=== PATIENT | male | born 1985 | race Caucasian/White ===

== ENCOUNTER 2016-04-15 09:47 | Emergency (ER) | payer OTHER ==
[2016-04-15 10:04] VITALS: BP 109/64
--- NOTE | 2016-04-15 10:50 | UC ---
Ear Complaint HPI - HPI Summary HPI Summary: Has had nasal congestion, cough, and ST for about a week. ST was better and thought he was over a cold, then woke up with bloody drainage from R ear and unable to hear. Children dx with strep yesterday. Denies fever or current pain. - History of Current Complaint Chief Complaint: UCRespiratory Stated Complaint: EAR/THROAT COMPLAINTS Time Seen by Provider: 04/15/16 10:36 Hx Obtained From: Patient Onset/Duration: Sudden Onset Severity Initially: Moderate Severity Currently: Mild Aggravating Factors: Nothing Alleviating Factors: Nothing Associated Signs/Symptoms: Positive: Discharge, URI Symptoms - Allergies/Home Medications Allergies/Adverse Reactions: Allergies Allergy/AdvReac Type Severity Reaction Status Date / Time No Known Allergies Allergy Verified 04/15/16 10:04 Home Medications: Home Medications Dexamethasone TAB* [Decadron TAB*] 0.5 mg PO DAILY 04/15/16 [History Confirmed 04/15/16] PMH/Surg Hx/FS Hx/Imm Hx Previously Healthy: Yes Endocrine History Of: Denies: Diabetes, Thyroid Disease Cardiovascular History Of: Denies: Cardiac Disorders, Hypertension Respiratory History Of: Denies: COPD, Asthma GI/ History Of: Denies: Ulcer - Surgical History Surgical History: None - Family History Known Family History: Negative: Blood Disorder - Social History Lives: With Family Alcohol Use: Occasionally Substance Use Type: None Smoking Status (MU): Unknown if Ever Smoked Type: Smokeless Tobacco Review of Systems Constitutional: Negative Skin: Negative Eyes: Negative ENT: Ear Ache Respiratory: Negative Cardiovascular: Negative Gastrointestinal: Negative Genitourinary: Negative Motor: Negative Neurovascular: Negative Musculoskeletal: Negative Neurological: Negative Psychological: Negative All Other Systems Reviewed And Are Negative: Yes Physical Exam Triage Information Reviewed: Yes Appearance: Well-Appearing, No Pain Distress, Well-Nourished Vital Signs: Initial Vital Signs Temp 97.9 F 04/15/16 10:01 Pulse 88 04/15/16 10:01 Resp 18 04/15/16 10:01 BP 109/64 04/15/16 10:01 Pulse Ox 96 04/15/16 10:01 Vital Signs Reviewed: Yes Eye Exam: Normal Eyes: Positive: Conjunctiva Clear ENT: Positive: Pharynx normal, Nasal congestion, TMs normal - L TM normal, Other : - Unable to see R TM due to purulent drainage, no tragal tenderness. Negative : Tonsillar exudate Dental Exam: Normal Neck exam: Normal Neck: Positive: Supple, Nontender, No Lymphadenopathy Respiratory Exam: Normal Respiratory: Positive: Chest non-tender, Lungs clear, Normal breath sounds, No respiratory distress, No accessory muscle use Cardiovascular Exam: Normal Cardiovascular: Positive: RRR, No Murmur Musculoskeletal Exam: Normal Neurological Exam: Normal Psychological Exam: Normal Skin Exam: Normal Ear Complaint Course/Dx - Differential Dx/Diagnosis Provider Diagnoses: R AOM with rupture of TM Discharge - Discharge Plan Condition: Stable Disposition: HOME Prescriptions: Amoxicillin/Clavulanate TAB* [Augmentin TAB 875*] 875 mg PO BID #14 tab Ciproflox/Dexameth OTIC.SUSP* [Ciprodex OTIC.SUSP*] 4 drop RIGHT EAR BID #1 btl Patient Education Materials: Otitis Media (ED), Ruptured Eardrum (ED) Referrals: Panda Chávez MD [Medical Doctor] - 2 Weeks Additional Instructions: Please see Dr. Chávez or your old PCP in about 2 weeks to make sure the ear is healing well. Until your follow-up, don't swim under water or try to get any water in your ear. Showering is fine, but keep your ear canal out of direct spray. Come back here if you have high fever, increasing pain, or suspect any other problems.
== END 2016-04-15 10:52 | disposition home or self-care (01) ==
LOC: UCEAST 09:47
DX: H66.91 Otitis media, unspecified, right ear (principal); H72.91 Unspecified perforation of tympanic membrane, right ear; Z72.0 Tobacco use
CPT/HCPCS: 99202; G0463

== ENCOUNTER 2017-11-02 12:50 | Emergency (ER) | payer SELFPAY ==
--- NOTE | 2017-11-02 14:49 | ED ---
Abdominal Pain/Male - HPI Summary HPI Summary: This patient is a 32 year old M presenting to [facility] accompanied by his mother with a chief complaint of cramping abd pain since 10/31/17 AM. He endorses N/V/D (first N/V, then abd pain, then diarrhea), non-productive cough, SOB, dyspnea, LLE edema (intermittent over past 2 years, recently worse), and fever (resolved) . PT denies CP. PMHx Addisons disease, R hydrocortisone. FHx Addisons disease brother and sister; his brother of similar sx 2.5 years ago; he became dehydrated then suffered cardiac arrest secondary to low K+ levels. 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 He denies PMHx DVT, and PE. Pt has several prior medical admissions. - History of Current Complaint Chief Complaint: EDAbdPain Stated Complaint: FEVER,N/D,DIFF BREATHING Time Seen by Provider: 11/02/17 14:42 Hx Obtained From: Patient Onset/Duration: Gradual Onset, Lasting Days, Still Present Timing: Constant Severity Initially: Moderate Severity Currently: Moderate Pain Intensity: 6 Pain Scale Used: 0-10 Numeric Location: Diffuse Radiates: No Character: Cramping Aggravating Factor(s): Nothing Alleviating Factor(s): Nothing Associated Signs And Symptoms: Positive: Fever - resolved, Cough - non- productive, Nausea, Vomiting, Diarrhea. 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 Denies: Hx Diabetes, Hx Thyroid Disease Cardiovascular History: Denies: Hx Hypertension Respiratory History: Denies: Hx Asthma, Hx Chronic Obstructive Pulmonary Disease (COPD) GI History: Denies: Hx Ulcer History: Denies: Hx Dialysis Sensory History: Denies: Hx Legally Blind, Hx Deafness Opthamlomology History: Denies: Hx Legally Blind EENT History: Denies: Hx Deafness Neurological History: Denies: Hx Dementia Psychiatric History: Denies: Hx Schizophrenia Infectious Disease History: No Infectious Disease History: Denies: Hx Hepatitis, Hx Human Immunodeficiency Virus (HIV), Traveled Outside the [place] in Last 30 Days - Family History Known Family History: Positive: Other - Saint Joseph's Disease (brother) Negative: Blood Disorder - Social History Occupation: Employed Full-time Lives: With Family Alcohol Use: Occasionally Hx Substance Use: No Substance Use Type: Reports: None Smoking Status (MU): Unknown if Ever Smoked Type: Smokeless Tobacco Review of Systems Positive: Fever - resolved Negative: Chest Pain Positive: Shortness Of Breath - secondary to dyspnea, Cough - non-productive Positive: Abdominal Pain, Vomiting, Diarrhea, Nausea Positive: no symptoms reported Positive: Edema - LLE All Other Systems Reviewed And Are Negative: Yes Physical Exam - Summary Physical Exam Summary: GENERAL: Patient is a well-developed and nourished M who is lying comfortable in the stretcher. Patient is not in any acute respiratory distress. HEAD AND FACE: Normocephalic EYES: PERRLA, EOMI x 2. EARS: Hearing grossly intact. MOUTH: Oropharynx within normal limits. NECK: Supple, trachea is midline, no adenopathy, no JVD, no carotid bruit. CHEST: Symmetric, no tenderness at palpation LUNGS: Inspiratory and expiratory wheezes on left side posteriorly. CVS: Regular rate and rhythm, S1 and S2 present, no murmurs or gallops appreciated. ABDOMEN: Soft, diffusely TTP. Bowel sounds are normal. No abdominal abnormal pulsations. EXTREMITIES: Full ROM in all major joints, no cyanosis or clubbing. 2+ pitting edema of LLE (chronic) NEURO: Alert and oriented x 3. No acute neurological deficits. Speech is normal and follows commands. SKIN: Dry and warm Triage Information Reviewed: Yes Vital Signs On Initial Exam: Initial Vitals Temp Pulse Resp BP Pulse Ox 97.9 F 104 18 109/64 94 11/02/17 12:58 11/02/17 12:58 11/02/17 12:58 11/02/17 12:58 11/02/17 12:58 Vital Signs Reviewed: Yes Diagnostics - Vital Signs Vital Signs Temp Pulse Resp BP Pulse Ox 11/02/17 12:58 97.9 F 104 18 109/64 94 - Laboratory Result Diagrams: 11/02/17 14:45 11/02/17 14:45 Lab Statement: Any lab studies that have been ordered have been reviewed, and results considered in the medical decision making process. - CT CTA C/A/P CT Interpretation: Positive (See Comments) CT Interpretation Completed By: Radiologist - No definite evidence of pulmonary embolus is noted. No evidence of aortic dissection is noted. Mild mediastinal and right hilar adenopathy is noted. Etiology is unclear. There is fluid throughout the colon with no abnormally dilated loops of small bowel. Findings are worrisome for gastroenteritis. Dr. Berumen has reviewed this report. - Ultrasound No standard instances Ultrasound Interpretation: No Acute Changes Ultrasound Interpretation Completed By: Radiologist - Normal bilateral lower extremity duplex venous ultrasound. Dr. Berumen has reviewed this report. - EKG 1438 Cardiac Rate: NL - 78 EKG Rhythm: Sinus Rhythm ST Segment: Normal EKG Interpretation: Slight intraventricular conduction delay. Abdominal Pain Fem Course/Dx - Course Course Of Treatment: A 32-year-old M presents to the ED with a CC of cramping abd pain for 2 days. (+) N/V/D (1st N/V, then abd pain onset, followed by diarrhea), fever (resolved), LLE edema, non-productive cough, and SOB secondary to dyspnea. (-) CP. 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 A CTA C/A/P reveals no definite evidence of pulmonary embolus is noted. No evidence of aortic dissection is noted. Mild mediastinal and right hilar adenopathy is noted. Etiology is unclear. There is fluid throughout the colon with no abnormally dilated loops of small bowel. An bilateral VD US was (-). Findings are worrisome for gastroenteritis. An EKG reveals NSR at 78 BPM and a slight intraventricular conduction delay. In the ED course, pt was given morphine, nl saline, and magnesium sulfate. Pt was offered admission for IV abx but pt preferred discharge. I discussed results with patient and he agrees with this plan. He is hemodynamically stable upon discharge. Strict return precautions given and he will otherwise follow up with his PCP. - Diagnoses Provider Diagnoses: Gastroenteritis Discharge - Sign-Out/Discharge Documenting (check all that apply): Patient Departure - discharge - Discharge Plan Condition: Stable Disposition: HOME Prescriptions: Ondansetron ODT TAB* [Zofran 4 MG Odt TAB*] 4 mg PO Q6H PRN #12 tab.odt PRN Reason: Vomiting Patient Education Materials: Gastroenteritis (ED) Forms: *Work Release Referrals: Panda Chávez MD [Primary Care Provider] - Additional Instructions: Please return to the emergency department for any new or worsening symptoms. Follow up with your primary care provider in 1-3 days. - Billing Disposition and Condition Condition: STABLE Disposition: Home - Attestation Statements Document Initiated by Inessa: Yes Documenting Scribe: Zachary More Provider For Whom Inessa is Documenting (Include Credential): Dr. Ronn Berumen MD Scribe Attestation: Zachary Price scribed for Dr. Ronn Berumen MD on 11/05/17 at 0741. Scribe Documentation Reviewed: Yes Provider Attestation: The documentation as recorded by the Zachary limon accurately reflects the service I personally performed and the decisions made by me, Dr. Ronn Berumen MD
[2017-11-02 15:00] LABS: ABS Basophils 0 10^3/ul (0-0.2); ABS Eosinophils 0.4 10^3/ul (0-0.6); ABS Lymphocytes 1.3 10^3/ul (1.0-4.8); ABS Monocytes 0.6 10^3/ul (0-0.8); ABS Neutrophils 4.9 10^3/ul (1.5-7.7); ABS Nucleated RBC 0 10^3/ul; Eosinophil % 5.8 % (0-6); Hematocrit 47 % (42-52); Hemoglobin 16.2 g/dl (14.0-18.0); Lymphocyte % 18.3 % (25-47); Mean Corpuscular HGB Conc 35 g/dl (31-36); Mean Corpuscular Hemoglobin 29 pg (27-31); Mean Corpuscular Volume 84 fL (80-94); Mean Platelet Volume 7.9 um3 (7.4-10.4); Nucleated Red Blood Cells % 0; Platelet Count 213 10^3/ul (150-450); Red Blood Count 5.59 10^6/ul (4.00-5.40); Red Cell Distribution Width 14 % (10.5-15); White Blood Count 7.2 10^3/ul (3.5-10.8)
[2017-11-02] MEDS ORDERED: NS 0.9% 1000 ML* 1,000 ML IV ONE ×2 (15:18→18:41)
[2017-11-02] MEDS ORDERED: Metoclopramide IV* 5 MG/ML 2 ML VIAL IV ONE (15:19)
[2017-11-02] MEDS ORDERED: Magnesium Sulfate 2 GM IV* 2 GM/50 ML BAG IVPB ONE (15:19)
[2017-11-02] MEDS ORDERED: Iohexol 350* (CONTRAST) 500 ML MDV IV ONE (17:00)
--- NOTE | 2017-11-02 17:39 | RAD ---
Indication: Elevated d-dimer. Shortness of breath. Abdominal pain. Contrast: Administered 94.0 ml of OMNIPAQUE 350 mg/ml CTA of the chest performed after IV contrast administration. CT of the abdomen and pelvis was performed after IV contrast administration. Coronal and sagittal reconstructed images were obtained. No oral contrast was given. Pulmonary arterial tree is well opacified. There are no filling defects present to suggest pulmonary embolus. The aorta demonstrates no evidence of aneurysmal dilatation or aortic dissection. The trachea and major bronchi appear patent. The lung soni demonstrate no focal nodules. There are small pleural effusion on the right. No alveolar consolidation is noted. No nodules are noted. There is small prevascular space lymph nodes measuring 6 mm. Subcarinal lymph nodes measure up to 11 mm, right hilar adenopathy measuring up to [address] of the abdomen and pelvis demonstrates liver to be normal in size. No focal lesions or intrahepatic duct dilatation is noted. The gallbladder demonstrates no calcified gallstones. No pericholecystic fluid or wall thickening is noted. The spleen is normal in size. Pancreas demonstrates no mass or pancreatic duct dilatation. Common duct is not dilated. No adrenal masses are noted. The kidneys demonstrate no hydronephrosis. No retroperitoneal lymphadenopathy is noted. CT of the pelvis demonstrates fluid throughout the colon and small bowel suggestive of gastroenteritis. No hernias are noted. No free fluid is identified. Prostate and seminal vesicles are unremarkable. The urinary bladder is unremarkable. The bony structures are grossly unremarkable. IMPRESSION: No definite evidence of pulmonary embolus is noted. No evidence of aortic dissection is noted. Mild mediastinal and right hilar adenopathy is noted. Etiology is unclear. There is fluid throughout the colon with no abnormally dilated loops of small bowel. Findings are worrisome for gastroenteritis.
[2017-11-02 19:51] LABS: Urine Appearance Clear; Urine Blood Negative (Negative); Urine Color Yellow; Urine Ketones Trace (Negative); Urine Protein Negative (Negative); Urine Specific Gravity > 1.060 (1.010-1.030); Urine Urobilinogen Negative (Negative)
--- NOTE | 2017-11-02 20:14 | RAD ---
EXAM: US Duplex Bilateral Lower Extremity Veins CLINICAL HISTORY: 32 years old, male; Signs and symptoms; Edema, localized; Lower extremity, bilateral; Additional info: Leg swelling with elevated dimer TECHNIQUE: Real-time duplex ultrasound scan of the bilateral lower extremity veins integrating B-mode two-dimensional vascular structure, Doppler spectral analysis, color flow Doppler imaging and compression. COMPARISON: No relevant prior studies available. FINDINGS: Right deep veins: Normal. No DVT in the right common femoral, femoral, proximal deep femoral or popliteal veins. The veins demonstrate normal color flow, are normally compressible, with normal phasic flow and/or augmentation response. Right superficial veins: Normal. No thrombus in the visualized right great saphenous vein. Left deep veins: Normal. No DVT in the left common femoral, femoral, proximal deep femoral or popliteal veins. The veins demonstrate normal color flow, are normally compressible, with normal phasic flow and/or augmentation response. Left superficial veins: Normal. No thrombus in the visualized left great saphenous vein. Soft tissues: Normal. No popliteal cyst. IMPRESSION: Normal bilateral lower extremity duplex venous ultrasound.
[2017-11-02 20:38] VITALS: BP 103/61
== END 2017-11-02 20:35 | disposition home or self-care (01) ==
LOC: ED 12:50
DX: K52.9 Noninfective gastroenteritis and colitis, unspecified (principal); R50.9 Fever, unspecified; R05 Cough; R19.7 Diarrhea, unspecified; R06.02 Shortness of breath; R11.2 Nausea with vomiting, unspecified
CPT/HCPCS: 36415; 71275; 74177; 80053; 81003; 83735; 84484; 85025; 85379; 86141; 93005; 93970; 96365; 96375; 99284; J2765; J3475; Q9967

== ENCOUNTER 2018-03-24 07:46 | Emergency (ER) | payer SELFPAY ==
[2018-03-24] MEDS ORDERED: NS 0.9% 1000 ML** 1,000 ML IV.FLUID IV ONE (08:42)
[2018-03-24] MEDS ORDERED: Hydrocortisone TAB* 10 MG PO ONE (08:58)
[2018-03-24 09:02] LABS: ABS Basophils 0 10^3/ul (0-0.2); ABS Eosinophils 0.1 10^3/ul (0-0.6); ABS Lymphocytes 0.9 10^3/ul (1.0-4.8); ABS Monocytes 0.4 10^3/ul (0-0.8); ABS Neutrophils 7.7 10^3/ul (1.5-7.7); ABS Nucleated RBC 0 10^3/ul; Hematocrit 42 % (42-52); Hemoglobin 14.3 g/dl (14.0-18.0); Lymphocyte % 9.8 %; Mean Corpuscular HGB Conc 34 g/dl (31-36); Mean Corpuscular Hemoglobin 29 pg (27-31); Mean Corpuscular Volume 84 fL (80-94); Mean Platelet Volume 7.7 fL (7.4-10.4); Nucleated Red Blood Cells % 0; Platelet Count 169 10^3/ul (150-450); Red Blood Count 4.98 10^6/ul (4.00-5.40); Red Cell Distribution Width 13 % (10.5-15); White Blood Count 9.2 10^3/ul (3.5-10.8)
[2018-03-24 09:12] LABS: Activated Partial Thrombo Time 37.7 seconds (26.0-36.3); INR 1.1 (0.77-1.02)
[2018-03-24 09:20] LABS: Troponin I 0.01 ng/mL (<0.04)
[2018-03-24 09:21] LABS: Albumin 3.7 g/dL (3.2-5.2); Albumin/Globulin Ratio 1.1 (1-3); BUN/Creatinine Ratio 9.6 (8-20); Calcium 8.7 mg/dL (8.6-10.3); EGFR African American 99.5 (>60); EGFR Non-African American 82.2 (>60); Globulin 3.3 g/dL (2-4); Potassium 3.6 mmol/L (3.5-5.0); Total Bilirubin 0.6 mg/dL (0.2-1.0)
--- NOTE | 2018-03-24 09:25 | ED ---
Influenza-Like Illness - HPI Summary HPI Summary: A 33 y/o male presents to [facility] with a chief complaint of flu-like symptoms since the night of 03/23/18. The patient reports body aches, cough, nausea, vomiting, fever and chills. Per triage note, "Pt took tylenol 500 mg and nyquil last PM. States hx addisons disease. States no flu shot this year." At triage the patient rated his pain as a 7/10 in severity. He notes that his cough is yellow in color. He says that he last vomited at 19:00 03/23/18. He denies a Hx of asthma. He sees Dr. Panda Chávez. He denies erythema (eyes), sore throat, chest pain, shortness of breath, abdominal pain, dysuria, hematuria, myalgia, edema, rash and dizziness. He says that he has only been taking his medication at night for 20 years. Temperature of 101/6 noted at triage. - History of Current Complaint Chief Complaint: EDFluSymptoms Time Seen by Provider: 03/24/18 08:24 Hx Obtained From: Patient Onset/Duration: Sudden Onset, Lasting Hours, Still Present Severity: Severe Associated Signs & Symptoms: Fever, Cough, Vomiting - Allergy/Home Medications Allergies/Adverse Reactions: Allergies Allergy/AdvReac Type Severity Reaction Status Date / Time No Known Allergies Allergy Verified 04/15/16 10:04 PMH/Surg Hx/FS Hx/Imm Hx Endocrine/Hematology History: Reports: Other Endocrine/Hematological Disorders - Snyder's Disease Denies: Hx Diabetes, Hx Thyroid Disease Cardiovascular History: Denies: Hx Hypertension Respiratory History: Denies: Hx Asthma, Hx Chronic Obstructive Pulmonary Disease (COPD) GI History: Denies: Hx Ulcer History: Denies: Hx Dialysis Sensory History: Denies: Hx Legally Blind, Hx Deafness Opthamlomology History: Denies: Hx Legally Blind Neurological History: Denies: Hx Dementia Psychiatric History: Denies: Hx Schizophrenia - Surgical History Surgery Procedure, Year, and Place: HERNIA REPAIR AN INFANT - Immunization History Date of Tetanus Vaccine: > 10 years Infectious Disease History: No Infectious Disease History: Denies: Hx Hepatitis, Hx Human Immunodeficiency Virus (HIV), Traveled Outside the [place] in Last 30 Days - Family History Known Family History: Positive: Other - Snyder's Disease (brother) Negative: Blood Disorder - Social History Alcohol Use: Occasionally Hx Substance Use: No Substance Use Type: Reports: None Smoking Status (MU): Unknown if Ever Smoked Type: Smokeless Tobacco Review of Systems Positive: Fever, Chills Negative: Erythema Negative: Sore Throat Negative: Chest Pain Positive: Cough. Negative: Shortness Of Breath Positive: Vomiting, Nausea. Negative: Abdominal Pain, Diarrhea Negative: dysuria, hematuria Positive: Other - positive: body aches. Negative: Myalgia, Edema Negative: Rash Neurological: Negative - dizziness All Other Systems Reviewed And Are Negative: Yes Physical Exam - Summary Physical Exam Summary: Constitutional: Well-developed, Well-nourished, Alert. (-) Distressed Skin: Warm, Dry HENT: Normocephalic; Atraumatic Eyes: Conjunctiva normal Neck: Musculoskeletal ROM normal neck. (-) JVD, (-) Stridor, (-) Tracheal deviation Cardio: Rhythm regular, rate normal, Heart sounds normal; Intact distal pulses; The pedal pulses are 2+ and symmetric. Radial pulses are 2+ and symmetric. (-) Murmur Pulmonary/Chest wall: Effort normal. (-) Respiratory distress, (-) Wheezes, (-) Rales, (+) rhochi right lower lung field. Abd: Soft, (-) epigastric tenderness, (-) Distension, (-) Guarding, (-) Rebound Musculoskeletal: (-) Edema Lymph: (-) Cervical adenopathy Neuro: Alert, Oriented x3 Psych: Mood and affect Normal Triage Information Reviewed: Yes Vital Signs On Initial Exam: Initial Vitals Temp Pulse Resp BP Pulse Ox 101.6 F 120 20 114/75 94 03/24/18 07:50 03/24/18 07:50 03/24/18 07:50 03/24/18 07:50 03/24/18 07:50 Vital Signs Reviewed: Yes Diagnostics - Vital Signs Vital Signs Temp Pulse Resp BP Pulse Ox 03/24/18 07:50 101.6 F 120 20 114/75 94 - Laboratory Lab Results: Lab Results 03/24/18 03/24/18 Range/Units 08:53 08:53 WBC 9.2 (3.5-10.8) 10^3/ul RBC 4.98 (4.00-5.40) 10^6/ul Hgb 14.3 (14.0-18.0) g/dl Hct 42 (42-52) % MCV 84 (80-94) fL MCH 29 (27-31) pg MCHC 34 (31-36) g/dl RDW 13 (10.5-15) % Plt Count 169 (150-450) 10^3/ul MPV 7.7 (7.4-10.4) fL Neut % (Auto) 84.5 % Lymph % (Auto) 9.8 % Loving % (Auto) 4.6 % Eos % (Auto) 1.0 % Baso % (Auto) 0.1 % Absolute Neuts (auto) 7.7 (1.5-7.7) 10^3/ul Absolute Lymphs (auto) 0.9 L (1.0-4.8) 10^3/ul Absolute Monos (auto) 0.4 (0-0.8) 10^3/ul Absolute Eos (auto) 0.1 (0-0.6) 10^3/ul Absolute Basos (auto) 0 (0-0.2) 10^3/ul Absolute Nucleated RBC 0 10^3/ul Nucleated RBC % 0 INR (Anticoag Therapy) 1.10 H (0.77-1.02) APTT 37.7 H (26.0-36.3) seconds Result Diagrams: 03/24/18 08:53 03/24/18 08:53 Lab Statement: Any lab studies that have been ordered have been reviewed, and results considered in the medical decision making process. - Radiology CXR Radiology Interpretation Completed By: Radiologist Summary of Radiographic Findings: Pneumonia involving the LEFT lung with consolidation greatest at the lower lung zone. Negative for pleural effusion. ED physician has reviewed this imaging report. Flu Symptom Course/Dx - Course Course Of Treatment: A 33 y/o male presents to [facility] with a chief complaint of flu-like symptoms since the night of 03/23/18. The patient reports body aches, cough, nausea, vomiting, fever and chills. The physical exam revealed rhonchi in the right lower lung field. CXR impression: Pneumonia involving the LEFT lung with consolidation greatest at the lower lung zone. Negative for pleural effusion. In the ED course the patient was given 10mg hydrocortisone PO, 600mg ibuprofen PO, 500mg azithromycin IV. Lab results obtained and are WNL. The patient tested negative for influenza A and influenza B. His O2 Sat was normal. I increased his hydrocortisone for 2 weeks supply. He is to resume normal dose after 2 weeks and follow up with his PCP in 1-2 days. He will also be discharged with a prescription for Zithromax. Return precautions were given. He is agreeable with this plan. - Diagnoses Provider Diagnoses: Pneumonia, Addisons disease Discharge - Sign-Out/Discharge Documenting (check all that apply): Patient Departure - DC Patient Received Moderate/Deep Sedation with Procedure: No - Discharge Plan Condition: Stable Disposition: HOME Prescriptions: Azithromycin TAB* [Zithromax TAB (Z-DAVID) 250 mg #6 tabs] 250 mg PO DAILY #4 tab Azithromyxin DAVID (NF) [Z-David (Zithromax) 250 mg tabs #6] 2 tab PO .TODAY, THEN 1 DAILY #6 tab Hydrocortisone TAB* [Cortef TAB*] 10 mg PO BID #28 tab Hydrocortisone TAB* [Cortef TAB*] 10 mg PO BID #28 tab Forms: *Work Release Referrals: [facility] [Outside] (1-2 days) Additional Instructions: Increased hydrocortisone for 2 weeks supply, resume normal dose after 2 weeks Follow up with your PCP in 1-2 days. Return to the ED if you experience any new or worsening symptoms. - Billing Disposition and Condition Condition: STABLE Disposition: Home - Attestation Statements Document Initiated by Inessa: Yes Documenting Scribe: Samy Gray Provider For Whom Inessa is Documenting (Include Credential): Gerald Smith MD Scribe Attestation: ISamy, scribed for Gerald Smith MD on 03/27/18 at 0738. Scribe Documentation Reviewed: Yes Provider Attestation: The documentation as recorded by the Samy limon accurately reflects the service I personally performed and the decisions made by me, Gerald Smith MD Status of Scribe Document: Viewed
[2018-03-24] MEDS ORDERED: Azithromycin IV(*) 500 MG in NS 0.9% 250 ML* 250 ML IVPB ONE (10:51)
[2018-03-24] MEDS ORDERED: Ibuprofen TAB* 600 MG PO ONE (10:51)
[2018-03-24 12:06] LABS: Influenza A Molecular NEGATIVE (Negative); Influenza B Molecular NEGATIVE (Negative)
[2018-03-24] MEDS ORDERED: NS 0.9% 1000 ML** 1,000 ML IV ONE (13:19)
[2018-03-24 13:44] LABS: Urine Appearance Clear; Urine Bacteria 1+ (Absent); Urine Bilirubin Negative (Negative); Urine Blood 1+ (Negative); Urine Color Yellow; Urine Glucose Negative (Negative); Urine Ketones Negative (Negative); Urine Nitrite Negative (Negative); Urine Protein Negative (Negative); Urine Red Blood Cell 1+(3-5/hpf) (Absent); Urine Specific Gravity 1.018 (1.010-1.030); Urine Urobilinogen Negative (Negative); Urine White Blood Cell Trace(0-5/hpf) (Absent)
[2018-03-24 14:19] VITALS: BP 105/80
--- NOTE | 2018-03-25 08:28 | PN ---
Progress Note - Progress Note Date of Service: 03/24/18 Note: Pt. seen in ED Pt. seen in ED yesterday and dx with Manlius's disease. Pt. placed on zithromax. BC were obtained yesterday. Preliminary aerobic culture is growing gram positive cocci resembling staph. Pt. did have a fever in ED but WBC normal. Suspect possible contaminant. I attempted to call pt. today at 0825 with no answer. Message left to return call. Will try to call again. 171: Attempted to call pt. again with no answer. Attempted to call secondary number listed in chart without answer. Will attempt to call again tomorrow.
== END 2018-03-24 14:18 | disposition home or self-care (01) ==
LOC: ED 07:46
DX: J18.9 Pneumonia, unspecified organism (principal); E27.1 Primary adrenocortical insufficiency; B95.7 Other staphylococcus as the cause of diseases classified elsewhere
CPT/HCPCS: 36415; 71045; 80053; 81003; 81015; 83605; 84484; 85025; 85610; 85730; 87040; 87077; 87086; 87150; 87205; 96361; 96365; 99284; A9270-GY; J0456

== ENCOUNTER 2018-08-02 12:27 | Emergency (ER) | payer SELFPAY ==
[2018-08-02 14:10] VITALS: BP 106/69
--- NOTE | 2018-08-03 07:19 | ED ---
Skin Complaint - HPI Summary HPI Summary: Old patient is a 33-year-old male presenting to the ED with concern for scabies infection. He states his daughter was just diagnosed with scabies P days ago and he is being symptomatic. He is endorsing puriritis and redness with dryness with small dry patches most notably to the webspaces of the fingers and 1 patch to the r foot. No other lesions throughout. States has been present x 2 weeks. Denies other sxs, including fevers, sweats or chills. - History of Current Complaint Chief Complaint: EDRashSkinAbscess Time Seen by Provider: 08/02/18 13:57 Stated Complaint: NEED TO BE CHECK FOR SCABIES PER PT Hx Obtained From: Patient Onset/Duration: Started Weeks Ago Skin Exposure Onset/Duration: Weeks Ago Timing: Constant Onset Severity: Mild Current Severity: Mild Pain Intensity: 0 Pain Scale Used: 0-10 Numeric Skin Location: Other: - webs of the hands/fingers Character: Pruritus, Hives, Redness Aggravating Symptom(s): Nothing Alleviating Symptom(s): Nothing Associated Signs & Symptoms: Negative Related History: Possible Reaction to: Insect - Allergy/Home Medications Allergies/Adverse Reactions: Allergies Allergy/AdvReac Type Severity Reaction Status Date / Time No Known Allergies Allergy Verified 08/02/18 12:38 Home Medications: Home Medications Hydrocortisone TAB* [Cortef TAB*] 10 mg PO DAILY 08/02/18 [History Confirmed ] PMH/Surg Hx/FS Hx/Imm Hx Previously Healthy: Yes Endocrine/Hematology History: 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 Denies: Hx Diabetes, Hx Thyroid Disease Cardiovascular History: Denies: Hx Hypertension Respiratory History: Denies: Hx Asthma, Hx Chronic Obstructive Pulmonary Disease (COPD) GI History: Denies: Hx Ulcer History: Denies: Hx Dialysis Sensory History: Denies: Hx Legally Blind, Hx Deafness Opthamlomology History: Denies: Hx Legally Blind Neurological History: Denies: Hx Dementia Psychiatric History: Denies: Hx Schizophrenia - Surgical History Surgery Procedure, Year, and Place: HERNIA REPAIR AN - Immunization History Date of Tetanus Vaccine: > 10 years Hx Pertussis Vaccination: No Immunizations Up to Date: Yes Infectious Disease History: No Infectious Disease History: Denies: Hx Hepatitis, Hx Human Immunodeficiency Virus (HIV), Traveled Outside the [place] in Last 30 Days - Family History Known Family History: Positive: Other - [place]'s Disease (brother) Negative: Blood Disorder - Social History Occupation: Employed Full-time Lives: With Family Alcohol Use: Weekly Hx Substance Use: No Substance Use Type: Reports: None Smoking Status (MU): Former Smoker Type: Smokeless Tobacco Review of Systems Constitutional: Negative Negative: Fever, Chills, Fatigue, Skin Diaphoresis Negative: Palpitations, Chest Pain Negative: Shortness Of Breath, Cough Genitourinary: Negative Positive: no symptoms reported, see HPI Negative: Arthralgia, Myalgia Positive: Other - burrows to the R webspacing Neurological: Negative All Other Systems Reviewed And Are Negative: Yes Physical Exam Triage Information Reviewed: Yes Vital Signs On Initial Exam: Initial Vitals Temp Pulse Resp BP Pulse Ox 98.3 F 67 16 127/66 99 08/02/18 12:35 08/02/18 12:35 08/02/18 12:35 08/02/18 12:35 08/02/18 12:35 Vital Signs Reviewed: Yes Appearance: Positive: Well-Appearing, Well-Nourished Skin: Positive: Other - burrows Head/Face: Positive: Normal Head/Face Inspection Neck: Positive: No Lymphadenopathy Respiratory/Lung Sounds: Positive: Clear to Auscultation Cardiovascular: Positive: RRR Musculoskeletal: Positive: Strength/ROM Intact - I Neurological: Positive: Speech Normal Psychiatric: Positive: Affect/Mood Appropriate Diagnostics - Vital Signs Vital Signs Temp Pulse Resp BP Pulse Ox 08/02/18 14:09 98.2 F 70 16 106/69 98 08/02/18 12:35 98.3 F 67 16 127/66 99 - Laboratory Lab Statement: Any lab studies that have been ordered have been reviewed, and results considered in the medical decision making process. Course/Dx - Course Course Of Treatment: Patient is evaluated for scabies infection. There are small amount of redness and crusting very small lesions which appear to be burrows into the web spacing of the right and left hand/fingers. Also a dry patch to the dorsum of the right foot. Daughter is currently being treated for scabies. Permethrin cream prescribed and discuss treatment with the pt. He understands and voices no concerns. - Differential Diagnoses - Skin Complaint Differential Diagnoses: Other - eczema - Diagnoses Provider Diagnoses: Scabies Discharge - Sign-Out/Discharge Documenting (check all that apply): Patient Departure Patient Received Moderate/Deep Sedation with Procedure: No - Discharge Plan Condition: Stable Disposition: HOME Prescriptions: Permethrin 5% CREAM* 1 applic TOPICAL SEE INSTRUCTIONS #2 tube Patient Education Materials: Scabies (ED) Referrals: Panda Chávez MD [Primary Care Provider] - Additional Instructions: Massage permethrin cream thoroughly into the skin from the neck to the soles of the feet, including areas under the fingernails and toenails. Permethrin should also be applied to the scalp and face (sparing the eyes and mouth) in this population. Permethrin should be removed by washing (shower or bath) after 8 to 14 hours. Treatment is often performed overnight. Repeat this in 1 weeks time. Must wash all clothing and bedding after washing of the body. This should be done with very hot water. - Billing Disposition and Condition Condition: STABLE Disposition: Home
== END 2018-08-02 14:09 | disposition home or self-care (01) ==
LOC: ED 12:27
DX: B86 Scabies (principal); Z87.891 Personal history of nicotine dependence
CPT/HCPCS: 99282